=== PATIENT | female | born 1975 | race Caucasian/White ===

== ENCOUNTER 2020-04-24 09:16 | Outpatient (NON) | payer OTHER, SELFPAY ==
[2020-04-25 16:06] LABS: SARS-CoV-2 RNA PCR Negative
== END 2020-04-24 09:17 ==
PROVIDERS: Visit Provider Family Medicine
DX: Z20.828 Contact with and (suspected) exposure to other viral communicable diseases (principal)
CPT/HCPCS: 87635; C9803; U0003

== ENCOUNTER → 2021-05-21 15:48 | Outpatient (CLI) | payer OTHER, SELFPAY ==
--- NOTE | ~2021-05-21 | MM_ITS ---
EXAMINATION: MM scrn georgette implant BI w bailey HISTORY: Screening mammogram TECHNIQUE: Craniocaudal and mediolateral oblique 3-D tomosynthesis images with implant displacement a nd synthetic 2-D images were generated. Craniocaudal and mediolateral oblique views of the breasts wi thout implant displacement were obtained using full field digital mammography. CAD analysis was submi tted and interpreted. COMPARISON: 09/27/2017 BREAST PARENCHYMAL COMPOSITION: The breasts are heterogeneously dense, which may obscure small masses . FINDINGS: There is no evidence of suspicious mass, calcification, or architectural distortion to sugg est malignancy in either breast. There has been no suspicious interval change. IMPRESSION: 1. No mammographic evidence of malignancy. 2. Recommend routine screening mammography in one year. BI-RADS Category 1: Negative Reviewed, dictated and finalized at location A. [facility]
== END ==
PROVIDERS: Visit Provider Obstetrics & Gynecology
DX: Z12.31 Encounter for screening mammogram for malignant neoplasm of breast (principal)
CPT/HCPCS: 77063; 77067

== ENCOUNTER 2023-03-18 11:38 | Day surgery (SDC) | payer OTHER, SELFPAY ==
--- NOTE | 2023-03-17 15:58 | WPDANESEPPF ---
Anes - Initial Pre Proc Eval Procedure: Operation Date: 03/18/23 14:00 Proposed Procedures p Screening Colonoscopy - Nilson Irizarry MD Date/Time: 03/17/23 15:58 Surgeon: Nilson Irizarry MD Pre Op Diagnosis: Neoplasm Screening Patient Data Age: 47 Gender: F Height: 1.69 m Weight: 70.76 kg Allergies Allergy/AdvReac Type Severity Reaction Status Date / Time No Known Allergies Allergy Verified 03/18/23 12:53 Home Medications Medication Instructions Recorded Confirmed Type bupropion HCl 100 mg tablet,12 hr 100 mg PO BID 09/25/20 03/18/23 History sustained-release (Wellbutrin SR) dextroamphetamine-amphetamine 10 10 mg PO DAILY 09/25/20 03/18/23 History mg tablet (Adderall) estradiol 2 mg tablet 2 mg PO DAILY 11/28/21 03/18/23 History eletriptan 20 mg tablet See Rx Instructions .Route 01/20/23 03/18/23 Rx .COMPLEX #30 tabs fluoxetine 20 mg capsule See Rx Instructions .Route 01/20/23 03/18/23 Rx .COMPLEX #90 caps sodium,potassium,mag sulfates 17.5 See Rx Instructions PO .COMPLEX 02/23/23 03/04/23 Rx gram-3.13 gram-1.6 gram oral soln #354 mL (Suprep Bowel Prep Kit) Patient hx anesthesia problems: none Family hx anesthesia problems: none Results Review: All pre-operative results and documents have been reviewed as part of the pre-operative evaluation. [facility] Past Medical History Medical History (Updated 03/18/23 @ 13:16 by Nilson Irizarry MD) Chronic migraine PHUC (generalized anxiety disorder) Surgical History Surgical History H/O abdominoplasty H/O reduction mammoplasty Hx of hysterectomy Family History Family History Grandparent Family history of osteoporosis Family history of migraine headaches Family history of cataracts Cerebrovascular accident Family history of malignant neoplasm of male breast Father Family history of alcoholism Mother Family history of alcoholism Social History Social History Social History: Smoking status: Never smoker Second hand tobacco smoke exposure: No Alcohol intake: never Substance use: never Substance use type: does not use Lack of Transportation: No Lack of Food: Never True Current Housing: I Have Housing Concerned About Future Housing: No Difficulty Paying Gas/Electric Bills: No Difficulty Paying for Meds: No Currently Unemployed: No Education: Bachelor's Degree Difficulty w/ Childcare or Family Care: No Living arrangements: with family Occupation/Education: occupation Gender identity (if verbalized by the patient): Female Sexual Orientation (if Verbalized by the Patient): Straight or Heterosexual Spiritual care concerns: No Anes - Eval Final PreProcedure Day of Procedure 03/17/23 15:58 Patient weight: normal Heart: regular rate and rhythm Lungs: clear to auscultation and normal air movement Airway: Mallampati scale class II Neurological: alert and oriented Last oral intake: >/= 8 hours ASA classification: II Emergent: no Anesthetic plan: proceed Anesthesia type and monitoring: general GIVS and standard monitoring Results Review: All pre-operative results and documents have been reviewed as part of the pre-operative evaluation. Informed Consent: The patient's anesthetic plan and its attendant risks and benefits were discussed with the patient/family/POA. Questions were solicited and answers provided to the satisfaction of the patient/family/POA.
[2023-03-18 12:58] VITALS: BP 119/81; PULSE 82; RESP 18; TEMP 36.3; O2SAT 100
[2023-03-18] MEDS: LACTATED RINGERS 1,000 ML 150 ML IV CONT (13:08)
--- NOTE | 2023-03-18 13:14 | PM.HPGS ---
History of Present Illness History of Present Illness Consent: Risks, benefits, and alternatives have been discussed and questions answered. Patient agrees to proceed with procedure. Chief complaint: Neoplasm Screening Narrative: Vikki Owen is a 47 year old female Presents for screening colonoscopy. patient reports that her current weight appetite and bowel is are normal. Patient denies abdominal pain. Has had no bleeding. Family history noncontributory. Review of Systems Review of Systems: Review of systems noncontributory. [facility] Past Medical History Medical History (Updated 03/18/23 @ 13:16 by Nilson Irizarry MD) Chronic migraine PHUC (generalized anxiety disorder) Surgical History Surgical History H/O abdominoplasty H/O reduction mammoplasty Hx of hysterectomy Family History Family History Grandparent Family history of osteoporosis Family history of migraine headaches Family history of cataracts Cerebrovascular accident Family history of malignant neoplasm of male breast Father Family history of alcoholism Mother Family history of alcoholism Social History Social History Social History: Smoking status: Never smoker Second hand tobacco smoke exposure: No Alcohol intake: never Substance use: never Substance use type: does not use Lack of Transportation: No Lack of Food: Never True Current Housing: I Have Housing Concerned About Future Housing: No Difficulty Paying Gas/Electric Bills: No Difficulty Paying for Meds: No Currently Unemployed: No Education: Bachelor's Degree Difficulty w/ Childcare or Family Care: No Living arrangements: with family Occupation/Education: occupation Gender identity (if verbalized by the patient): Female Sexual Orientation (if Verbalized by the Patient): Straight or Heterosexual Spiritual care concerns: No Meds Home Medications and Allergies Home Medications Medication Instructions Recorded Confirmed Type bupropion HCl 100 mg tablet,12 hr 100 mg PO BID 09/25/20 03/18/23 History sustained-release (Wellbutrin SR) dextroamphetamine-amphetamine 10 10 mg PO DAILY 09/25/20 03/18/23 History mg tablet (Adderall) estradiol 2 mg tablet 2 mg PO DAILY 11/28/21 03/18/23 History eletriptan 20 mg tablet See Rx Instructions .Route 01/20/23 03/18/23 Rx .COMPLEX #30 tabs fluoxetine 20 mg capsule See Rx Instructions .Route 01/20/23 03/18/23 Rx .COMPLEX #90 caps sodium,potassium,mag sulfates 17.5 See Rx Instructions PO .COMPLEX 02/23/23 03/04/23 Rx gram-3.13 gram-1.6 gram oral soln #354 mL (Suprep Bowel Prep Kit) Allergies Allergy/AdvReac Type Severity Reaction Status Date / Time No Known Allergies Allergy Verified 03/18/23 12:53 Vital Signs Vital Signs - 24 hr 03/18/23 12:58 Temperature 97.3 F L Pulse Rate 82 Respiratory Rate 18 Blood Pressure 119/81 Pulse Oximetry 100 Oxygen Delivery Room Air Exam Narrative: Physical exam reveals patient Vitalsigns stable. Eight T exam is unremarkable. Patient is anicteric. Lungs are clear to auscultation and to percussion. Heart is without murmur or extra sounds. Abdomen bowel sounds are present soft nontender with no organomegaly. Digital external rectal exam normal. Assessment and Plan Assessment and plan (1) Encounter for screening colonoscopy: Code(s): Z12.11 - Encounter for screening for malignant neoplasm of colon Status: Acute Assessment and Plan: patient presents for screening colonoscopy. She appears to be at average risk for colon polyps. Further recommendations may be given after endoscopy.
[2023-03-18 13:43] VITALS: BP 108/71; PULSE 84; RESP 16; O2SAT 100
[2023-03-18 13:53] VITALS: BP 113/92; PULSE 76; RESP 16; O2SAT 100
[2023-03-18 14:03] VITALS: BP 106/75; PULSE 77; RESP 16; O2SAT 100
--- NOTE | 2023-03-18 14:23 | WPDANESPN ---
Anes - Prog Note Post-Op Date/Time: 03/18/23 14:23 Cardiovascular status: normal Respiratory status: normal Airway patency: baseline Mental status: baseline Post-Op hydration status: normal Vital Signs: Last Vital Signs Temp 36.3 C L 03/18/23 12:58 Pulse 77 03/18/23 14:03 Resp 16 03/18/23 14:03 BP 106/75 03/18/23 14:03 Pulse Ox 100 03/18/23 14:03 O2 Del Method Room Air 03/18/23 14:03 Pain Score (VAS): 0 I/O: Intake & Output 03/17/23 03/18/23 03/18/23 23:59 07:59 15:59 Intake Total 500 Balance 500 Post-procedural complaints: none Patient Feedback: Patient satisfied with anesthetic care. Other Findings: Patient vital signs back to baseline. Patient denies nausea and vomiting. Patient's pain under control. Patient OK for discharge.
== END 2023-03-18 14:20 | disposition home or self-care (01) ==
PROVIDERS: PCP Family Medicine; Visit Provider Internal Medicine Gastroenterology
PROC: 0DJD8ZZ Inspection of Lower Intestinal Tract, Via Natural or Artificial Opening Endoscopic (ICD-10-PCS; CPT 45378; principal; 2023-03-18 14:00)
DX: Z12.11 Encounter for screening for malignant neoplasm of colon (principal); K57.30 Diverticulosis of large intestine without perforation or abscess without bleeding
CPT/HCPCS: 45378

== ENCOUNTER 2023-06-28 12:50 | Outpatient (CLI) | payer OTHER, SELFPAY ==
--- NOTE | ~2023-06-28 | US_ITS ---
EXAMINATION: US thyroid DATE: 06/28/2023 13:12 INDICATION: Nontoxic single thyroid nodule TECHNIQUE: Multiple ultrasound images of the thyroid were obtained. COMPARISON: None. FINDINGS: The right thyroid lobe measures 4.6 x 1.7 x 1.7 cm. The left thyroid lobe measures 4.4 x 1.1 x 1.3 c m. 1.7 cm wider than tall solid hypoechoic nodule with smooth margins and no echogenic foci at the a t the junction of the left thyroid lobe and isthmus (TI-RADS 4, moderately suspicious , FNA if >=1.5 cm, annual followup is >=1 cm). There are a 3 additional smaller TI RADS 4 nodules with similar imagi ng features in the right thyroid lobe which measure 1.1 cm, 9 mm and 8mm in maximal diameters. There is coarsened echotexture with mildly increased vascular flow on color Doppler throughout both thyroid lobes. IMPRESSION: 1. Multinodular goiter. Recommend ultrasound-guided biopsy of the 1.7 cm TI RADS 4 left thyroid nodul e. Reviewed, dictated and finalized at location A. RT DESK CLERK IMPRESSION: 1. Multinodular goiter. Recommend ultrasound-guided biopsy of the 1.7 cm TI RAD S 4 left thyroid nodule.
== END 2023-06-28 12:51 ==
LOC: MICIMG 12:51
PROVIDERS: PCP Nurse Practitioner; Visit Provider Nurse Practitioner
DX: E04.1 Nontoxic single thyroid nodule (principal); E04.2 Nontoxic multinodular goiter
CPT/HCPCS: 76536

== ENCOUNTER 2023-10-15 15:26 | Outpatient (CLI) | payer OTHER, SELFPAY ==
--- NOTE | ~2023-10-15 | MM_ITS ---
EXAMINATION: MM scrn georgette implant BI w bailey HISTORY: Screening mammogram TECHNIQUE: Craniocaudal and mediolateral oblique 3-D tomosynthesis images with implant displacement a nd synthetic 2-D images were generated. Craniocaudal and mediolateral oblique views of the breasts wi thout implant displacement were obtained using full field digital mammography. CAD analysis was submi tted and interpreted. COMPARISON: Comparison to multiple prior studies sequentially, with oldest reviewed study dated 09/27. BREAST PARENCHYMAL COMPOSITION: The breasts are almost entirely fatty. FINDINGS: There is no evidence of suspicious mass, calcification, or architectural distortion to sugg est malignancy in either breast. There has been no suspicious interval change. IMPRESSION: 1. No mammographic evidence of malignancy. 2. Recommend routine screening mammography in one year. BI-RADS Category 1: Negative Reviewed, dictated and finalized at location B.
== END 2023-10-15 15:27 ==
LOC: MICIMG 15:27
PROVIDERS: PCP Nurse Practitioner; Visit Provider Family Medicine
DX: Z12.31 Encounter for screening mammogram for malignant neoplasm of breast (principal)
CPT/HCPCS: 77063; 77067

== ENCOUNTER 2023-11-17 12:26 | Outpatient (CLI) | payer OTHER, SELFPAY ==
--- NOTE | ~2023-11-17 | US_ITS ---
EXAMINATION: 1. US FNA w image guidance 2. US FNA additional DATE: 11/17/2023 14:45 INDICATION: Thyroid nodules. TECHNIQUE: The procedure and its benefits and risks were discussed with the patient. Risks specifically discusse d included bleeding. The patient verbalized understanding of the risks and agreed to proceed. The nec k was prepped and draped in the usual sterile manner. 1% lidocaine was used for local anesthesia. 7 passes were made with a 25G needle into the lesion in right thyroid lobe under ultrasound guidance. 6 passes were made with a 25-gauge needle into the lesion in left thyroid lobe on ultrasound guidance . There were no immediate complications. FINDINGS: Grayscale ultrasound images demonstrate needles advanced into a 12 mm nodule in right thyroid lobe. G rayscale ultrasound images demonstrate needles advanced into a 17 mm nodule in left thyroid lobe for biopsy. IMPRESSION: 1. Ultrasound-guided fine needle aspiration of a 12 mm right thyroid nodule. 2. Ultrasound-guided fine-needle aspiration of a 17 mm left thyroid nodule. Reviewed, dictated and finalized at location A. IMPRESSION: 1. Ultrasound-guided fine needle aspiration of a 12 mm right thyroid nodule. 2. Ultrasound-guided fine-needle aspiration of a 17 mm left thyroid nodule.
== END 2023-11-17 12:27 | disposition home or self-care (01) ==
PROVIDERS: PCP Family Medicine; Visit Provider Internal Medicine
DX: E04.2 Nontoxic multinodular goiter (principal); E05.90 Thyrotoxicosis, unspecified without thyrotoxic crisis or storm
CPT/HCPCS: 10005; 10006; 88172; 88173; 88305

== ENCOUNTER 2024-06-01 13:01 | Outpatient (CLI) | payer OTHER, SELFPAY ==
--- NOTE | ~2024-06-01 | US_ITS ---
EXAMINATION: US thyroid DATE: 06/01/2024 13:43 INDICATION: Multinodular goiter. TECHNIQUE: Multiple ultrasound images of the thyroid were obtained. COMPARISON: Ultrasound 06/28/2023, 11/17/23 FINDINGS: The right thyroid lobe measures 5.0 x 1.0 x 2.0 cm. The left thyroid lobe measures 4.4 x 1.2 x 2.0 c m. In the right thyroid lobe, there is an 8 mm solid, hypoechoic, wider than tall nodule with smooth margin without echogenic foci (TI-RADS TR4). In the right thyroid lobe, there is an 11 mm solid, hyp oechoic, wider than tall nodule with ill-defined margin without echogenic foci (TR4), stable from 11/16 when biopsy was benign. In the left thyroid lobe, there is a 7 mm solid, isoechoic, wider than ta ll nodule with ill-defined margin without echogenic foci (TR3). In the thyroid isthmus, there is a 15 mm solid, hypoechoic, wider than tall nodule with ill-defined margin without echogenic foci (TR4), s table from 11/17/23 when biopsy was benign. IMPRESSION: 1. Multinodular goiter, likely not clinically significant. No follow-up is needed. Reviewed, dictated and finalized at location A. [employer] EMPLOYEE RELATIONS IMPRESSION: 1. Multinodular goiter, likely not clinically significant. No follow-up is need ed.
--- OUTSIDE RECORDS SUMMARY | 2024-06-08 03:31 | XMS_ITS | Referral Summary ---
Author Organization [facility] [employer] Address [address] [place] [address] Care Team Providers Care Keyboard Specialist Name Role Phone Isabel Mills MD Primary Care Provider + Source Comments [facility] [employer] [facility],non-owned Affiliates and Associated Physician Practices is amultiple site organization consisting of ambulatory clinics and hospital sitesin [place], [place], [place] and [place]. This disclosure is being madepursuant to the Care Everywhere program and may not contain all information available regarding this patient. Last updated 18.[facility] Allergies No known active allergies Medications * Be aware that medications may not be up to date on this document. Alwaysverify current medications with the patient. Medication Sig Dispensed Refills Start Date End Date Status buPROPion HCl (WELLBUTRIN PO) Active Amphetamine-Dextroa mphetamine (ADDERALL PO) Active estrogens, conjugated synthetic B, (ENJUVIA) 0.3 MG tablet Take 0.3 mg by mouth once daily Active triamcinolone acetonide (KENALOG) 0.1 % creamIndications:De rmatitis Apply to affected area 2 times daily Reasons: Skin Inflammation 30 g 01/01/2019 Active Social History Tobacco Use Types Packs/Day Years Used Date Smoking Tobacco: Never Smokeless Tobacco: Never Sex and Gender Information Value Date Recorded Sex Assigned at Not on file Gender Identity Not on file Sexual Orientation Straight 04/20/2024 2: 12 PM [employer] Last Filed Vital Signs Vital Sign Reading Time Taken Comments Blood Pressure 116/74 01/01/2019 1:59 PM CDT Pulse 96 01/01/2019 1:59 PM CDT Temperature 36.8 ??C (98.3 ??F) 01/01/2019 1:59 PM CD T Respiratory Rate 17 01/01/2019 1:59 PM CDT Oxygen Saturation 98% 01/01/2019 1:59 PM CDT Inhaled Oxygen Concentration - - Weight 74.8 kg (165 lb) 01/01/2019 1:59 PM CDT Height 165.1 cm (5' 5 ) 01/01/2019 1:59 PM CDT Body Mass Index 27.46 01/01/2019 1:59 PM CDT Plan of Treatment Not on file Care Teams Keyboard Specialist Relationship Specialty Start Date End Date Isabel Mills MD [address] [place] [address] PCP - General Family Medicine 01/01/19
--- OUTSIDE RECORDS SUMMARY | 2024-06-08 03:31 | XMS_ITS ---
Author Organization [facility] Address [address] [place] [address] Care Team Providers Care Thoracic Surgeon Name Role Phone Dr. Isabel Saenz Primary Care Provider Un available Siddharth Ness Unavailable [phone] Andrew Correia Unavailable Unavailable Sampson Dickerson Unavailable [phone] REASON FOR VISIT SCIT - Traditional Schedule Allergy Immunotherapy (Week ) Medications Medication SIG (Take, Route, Frequency, Duration) Notes Start Date End Date Status Pneumovax 23 25 MCG/0.5ML as directed Injection 1 for 1 days 11/08/2023 Active DONA 12 HOUR ALLERGY 60 MG 1 TAB(S) ORALLY 2 TIMES A DAY *Please review for potential replacement for e-prescription and drug interaction check* Not-Taking Estradiol 2 MG 1 tab(s) orally once a day Active PROzac 20 MG 1 cap(s) orally once a day Active Adderall *Please review and pick correct strength-formula tion from [employer] options. If intended option is not shown, discontinue and re-order from Quick Search* Active ELETRIPTAN 20 MG DIRECTED ORALLY *Please revi ew for potential replacement for e-prescription and drug interaction check* Active buPROPion HCl ER (XL) 300 MG 1 tab(s) orally every 24 hours Active Topiramate 25 MG 1 tab(s) orally 2 times a day Active Cholecalciferol *Please review and pick correct strength-formula tion from [employer] options. If intended option is not shown, discontinue and re-order from Quick Search* Active Fluticasone Propionate 50 MCG/ACT 2 spray(s) in each nostril twice a day for 30 days Active SIT (Traditional) variable - see record per schedule subcutaneous per schedule for 999 11/08/2023 Active NASAL WASHES N/A as directed intranasally as needed for 30 days Active FLUTICASONE NASAL 50 mcg/inh 2 spray(s) in each nostril twice a day for 30 days Active CETIRIZINE 10 mg 1 tab(s) orally once a day for 30 days Active Cetirizine HCl 10 MG 1 tab(s) orally onc e a day for 30 days Active ESTRADIOL 2 mg 1 tab(s) orally once a day Active PROZAC 20 mg 1 cap(s) orally once a day Active ADDERALL Active BUPROPION 300 mg/24 hours 1 tab(s) orally every 24 hours Active TOPIRAMATE 25 mg 1 tab(s) orally 2 times a day Active FLUTICASONE NASAL 50 mcg/inh 2 spray(s) in each nostril twice a day for 30 days Active CETIRIZINE 10 mg 1 tab(s) orally once a day for 30 days Active EpiPen 2-Rachel 0.3 mg as directed intramuscularly once for 30 days Active CHOLECALCIFEROL Acti ve EPIPEN 2-RACHEL 0.3 mg as directed intramuscularly once for 30 days Active Encounters Encounter Location Date Provider Diagnosis [facility] [address] [place] [address] 06/01/2024 Sampson Dickerson Allergic rhinitis du e to pollen J30.1 ; Other allergic rhinitis J30.89 ; Allergic rhinitis due to animal (cat) (dog) hair and dander J30.81 and Other chronic allergic conjunctivitis H10.45 Assessments Encounter Date Diagnosis (ICD Code) Assessment Notes Treatment Notes Treatment Clinical Notes Section Notes 06/01/2024 Allergic rhinitis due to pollen (ICD-10 - J30.1) 06/01/2024 Other allergic rhinitis (ICD-10 - J30.89) 06/01/2024 Allergic rhinitis due to animal (cat) (dog) hair and dander (ICD-10 - J30.81) 06/01/2024 Other chronic allergic conjunctivitis (ICD-10 - H10.45) Plan Of Treatment Next Appt Details Follow Up: As scheduled, [place] son: Provider Name:Sampson Dickerson , 06/26/2024 04:00:00 PM, [address] [facility], [address], [place], [address], Provider Name:Sampson Dickerson , 07/24/2024 04:00:00 PM, [address] [facility], [address], [place], [address], Progress Notes * MARGOTVikash MALLOYleviDOB: 5 (48 yo F)Acc No.[id number]:06/01/2024 SCIT-Aeroallergen Patient:?MARGOTVikashVikki Provider:?Sampson Dickerson MD :1975???Age:48 Y???Sex:Female D ate:06/01/2024 Address:[address] [place], [place] [address] Pcp:Dr. Isabel Saenz Subjective: * Chief Complaints: * ???SCIT - Traditional [place] Allergy Immunotherapy (Week ) * HPI: ???*Introduction:? The patient is here for scheduled immunotherapy. Please see the attached specialty form regarding the specifics of the administration of these vaccines. As per our protocol, they must undergo a screening health questionnaire (medication changes, reaction(s) to last immunotherapy dose(s), current health status, ACT (if appropriate), self-injectable epinephrine on patient(?) and peak flow (if appropriate)). Also, the patient must wait in our office for 30 minutes after receiving the vaccine(s). Furthermore, every patient must have an epinephrine pen (self-injectable) with them at the time of administration--and carry if for the following 1.5 hours after they leave our office. The patient must also have taken their antihistamine the day of the injection, preferably 2 hours prior. The consent form for SCIT (subcutaneous immunotherapy) is on file. * Medical History:? * Surgical History:? * Hospitalization/Major Diagno stic Procedure:? * Medications:?TakingEpiPen 2- Rachel 0.3 mg kit as directed intramuscularly once EpiPen 2-Rachel 0.3 mg kit as directed intramuscularly once CETIRIZINE 10 mg tablet 1 tab(s) orally once a day FLUTICASONE NASAL 50 mcg/inh spray 2 spray(s) in each nostril twice a day EPIPEN 2-RACHEL 0.3 mg kit as directed intramuscularly once CHOLECALCIFEROL TOPIRAMATE 25 mg tablet 1 tab(s) orally 2 times a day BUPROPION 300 mg/24 hours tablet, extended release 1 tab(s) orally every 24 hours ADDERALL PROZAC 20 mg capsule 1 cap(s) orally once a day ESTRADIOL 2 mg tablet 1 tab(s) orally once a day CETIRIZINE 10 mg tablet 1 tab(s) orally once a day FLUTICASONE NASAL 50 mcg/inh spray 2 spray(s) in each nostril twice a day NASAL WASHES N/A 1 quart of sterilized tap water or distilled water, 1 tsp NaCl, 1 pinch of baking soda as directed intranasally as needed SIT (Traditional) variable - see record variable - see record per schedule subcutaneous per schedule Cetirizine HCl 10 MG Tablet 1 tab(s) orally once a day Fluticasone Propionate 50 MCG/ACT Suspension 2 spray(s) in each nostril twice a day Cholecalciferol , Notes to Pharmacist: *Please review and pick correct strength-formulation from [employer] options. If intended option is not shown, discontinue and re-order from Quick Search*Topiramate 25 MG Tablet 1 tab(s) orally 2 times a day buPROPion HCl ER (XL) 300 MG Tablet Extended Release 24 Hour 1 tab(s) orally every 24 hours ELETRIPTAN 20 MG TABLET DIRECTED ORALLY , Notes to Pharmacist: *Please review for potential replacement for e-prescription and drug interaction check*Adderall , Notes to Pharmacist: *Please review and pick correct strength-formulation from [employer] options. If intended option is not shown, discontinue and re-order from Quick Search*PROzac 20 MG Capsule 1 cap(s) orally once a day Estradiol 2 MG Tablet 1 tab(s) orally once a day Pneumovax 23 25 MCG/0.5ML Injectable as directed Injection 1 Taking EpiPen 2-Rachel 0.3 mg kit as directed intramuscularly once Taking EpiPen 2-Rachel 0.3 mg kit as directed intramuscularly once Taking CETIRIZINE 10 mg tablet 1 tab(s) orally once a day Taking FLUTICASONE NASAL 50 mcg/inh spray 2 spray(s) in each nostril twice a day Taking EPIPEN 2-RACHEL 0.3 mg kit as directed intramuscularly once Taking CHOLECALCIFEROL Taking TOPIRAMATE 25 mg tablet 1 tab(s) orally 2 times a day Taking BUPROPION 300 mg/24 hours tablet, extended release 1 tab(s) orally every 24 hours Taking ADDERALL Taking PROZAC 20 mg capsule 1 cap(s) orally once a day Taking ESTRADIOL 2 mg tablet 1 tab(s) orally once a day Taking CETIRIZINE 10 mg tablet 1 tab(s) orally once a day Taking FLUTICASONE NASAL 50 mcg/inh spray 2 spray(s) in each nostril twice a day Taking NASAL WASHES N/A 1 quart of sterilized tap water or distilled water, 1 tsp NaCl, 1 pinch of baking soda as directed intranasally as needed Taking SIT (Traditional) variable - see record variable - see record per schedule subcutaneous per schedule Taking Cetirizine HCl 10 MG Tablet 1 tab(s) orally once a day Taking Fluticasone Propionate 50 MCG/ACT Suspension 2 spray(s) in each nostril twice a day Taking Cholecalciferol , Notes to Pharmacist: *Please review and pick correct strength-formulation from anfix options. If intended option is not shown, discontinue and re-order from Quick Search*Taking Topiramate 25 MG Tablet 1 tab(s) orally 2 times a day Taking buPROPion HCl ER (XL) 300 MG Tablet Extended Release 24 Hour 1 tab(s) orally every 24 hours Taking ELETRIPTAN 20 MG TABLET DIRECTED ORALLY , Notes to Pharmacist: *Please review for potential replacement for e-prescription and drug interaction check*Taking Adderall , Notes to Pharmacist: *Please review and pick correct strength- formulation from [employer] options. If intended option is not shown, discontinue and re-order from Quick Search*Taking PROzac 20 MG Capsule 1 cap(s) orally once a day Taking Estradiol 2 MG Tablet 1 tab(s) orally once a day Taking Pneumovax 23 25 MCG/0.5ML Injectable as directed Injection 1 Not-Taking/PRNALLEGRA 12 HOUR ALLERGY 60 MG TABLET 1 TAB(S) ORALLY 2 TIMES A DAY , Notes to Pharmacist: *Please review for potential replacement for e-prescription and drug interaction check*Not-Taking/PRN DONA 12 HOUR ALLERGY 60 MG TABLET 1 TAB(S) ORALLY 2 TIMES A DAY , Notes to Pharmacist: *Please review for potential replacement for e-prescription and drug interaction check* Objective: * Vitals:? Assessment: * Assessment: 1.?Allergic rhinitis due to pollen - J30.1 (Primary)???2.?Other allergic rhinitis - J30.89???3.?Allergic rhinitis due to animal (cat) (dog) hair and dander - J30.81???4.?Other chronic allergic conjunctivitis - H10.45??? Plan: * Treatment: * Procedure Codes:?85448 IMMUN OTHERAPY INJECTIONS * Preventive Medicine:? ??Counseling:?Exercise?Avoid heavy lifting on days of allergy immunotherapy.?Medication instruction:?Injectable epinephrine education and instruction w/ discussion of signs and symptoms of anaphylaxis and reasons to seek urgent or emergent care, Watch for side effects of prescribed medications.?Education:?Able to return demonstration of self-injectable epinephrine.? * Follow Up:?As scheduled * Billing Information: * Visit Code:? * Procedure Codes:? 22077 IMMUNOTHERAPY INJECTIONS. * EMERGING MEDIA Sign off status: Completed true * Provider:?Sampson Dickerson MD Date:?06/01 Generated for Christal perla/Zachary/eTmary bethsmitting on:?06/08/2024 03:31 AM VP EMERGING MEDIA History and Physical Notes * HPI (History of Present Illness) Category Sub-Category Detail Notes Category Not es *Introduction The patient is here for scheduled immunotherapy. Please see the attached specialty form regarding the specifics of the administration of these vaccines. As per our protocol, they must undergo a screening health questionnaire (medication changes, reaction(s) to last immunotherapy dose(s), current health status, ACT (if appropriate), self-injectable epinephrine on patient(?) and peak flow (if appropriate)). Also, the patient must wait in our office for 30 minutes after receiving the vaccine(s). Furthermore, every patient must have an epinephrine pen (self-injectable) with them at the time of administration--and carry if for the following 1.5 hours after they leave our office. The patient must also have taken their antihistamine the day of the injection, preferably 2 hours prior. The consent form for SCIT (subcutaneous immunotherapy) is on file.
--- OUTSIDE RECORDS SUMMARY | 2024-06-08 03:31 | XMS_ITS | Clinical Summary ---
Author Organization [facility] Address [address] [place] [address] Care Team Providers Care Casting Machine Control Board Operator Name Role Phone Isabel Mills MD Primary Care Provider + Source Comments [facility],non-owned Affiliates and Associated Physician Practices is amultiple site organization consisting of ambulatory clinics and hospital sitesin [place], [place], [place] and [place]. This disclosure is being madepursuant to the Care Everywhere program and may not contain all information available regarding this patient. 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 Filed Vital Signs Vital Sign Reading Time Taken Comments Blood Pressure 116/74 01/01/2019 1:59 PM CDT Pulse 96 01/01/2019 1:59 PM CDT Temperature 36.8 ??C (98.3 ??F) 01/01/2019 1:59 PM C DT Respiratory Rate 17 01/01/2019 1:59 PM CDT Oxygen Saturation 98% 01/01/2019 1:59 PM CDT Inhaled Oxygen Concentration - - Weight 74.8 kg (165 lb) 01/01/2019 1:59 PM CDT Height 165.1 cm (5' 5 ) 01/01/2019 1:59 PM CDT Body Mass Index 27.46 01/01/2019 1:59 PM CDT Plan of Treatment Health Maintenance Due Date Last Done Comments COLOGUARD (AGES 45-75) - COL ON CA SCREENING 1974 COLON MONITORING 1974 COLONOSCOPY - COLON CA SCREENING 1974 CT COLONOGRAPHY - COLON CA SCREENING 1974 Colorectal Cancer Screening 1974 FIT - COLON CA SCREENING 1974 FLEX SIG - COLON CA SCREENING 1974 LIPID TESTING 1974 MAMMOGRAM 1974 PAP SMEAR 1974 HIV SCREENING 1989 HEPATITIS C SCREENING 10/21/1992 DTAP/TDAP/TD VACCINES (1 - Tdap) 1993 HEPATITIS B VACCINE (1 of 3 - 19+ 3-dose series) 1993 SCREENING FOR DIABETES 01/01/2019 COVID-19 VACCINE ( - 2023-2 5 season) 2024 INFLUENZA VACCINE (#1) 2024 DEPRESSION SCREENING 05/17/2024 ZOSTER VACCINE (1 of 2) 2024 HIB VACCINE Aged Out No longer eligi ble based on patient's age to complete this topic HPV VACCINE Aged Out No longer eligi ble based on patient's age to complete this topic MENINGOCOCCAL (Group B) VACCINE Aged Out No longer eligible based on patient's age to complete this topic MENINGOCOCCAL VACCINE Aged Out No lorna camelia eligible based on patient's age to complete this topic PNEUMOCOCCAL VACCINE Aged Out No long er eligible based on patient's age to complete this topic Care Teams Casting Machine Control Board Operator Relationship Specialty Start Date End Date Isabel Mills MD [address] [place] [address] PCP - General Family Medicine 01/01/19
--- OUTSIDE RECORDS SUMMARY | 2024-06-08 03:31 | XMS_ITS | Patient Health Summary ---
Author Organization [facility] [employer] Address [address] [place] [address] Care Team Providers Care Anesthesiology Resident Name Role Phone Isabel Mills MD Primary Care Provider + Note from [facility],non-owned Affiliates and Associated Physician Practices is amultiple site organization consisting of ambulatory clinics and hospital sitesin [place], [place], [place] and [place]. This disclosure is being madepursuant to the Care Everywhere program and may not contain all information available regarding this patient. Last updated 18.[facility] Allergies No known active allergies Medications * Be aware that medications may not be up to date on this document. Alwaysverify current medications with the patient. * buPROPion HCl (WELLBUTRIN PO) * Amphetamine-Dextroamphetamine (ADDERALL PO) * estrogens, conjugated synthetic B, (ENJUVIA) 0.3 MG tablet Take 0.3 mg by mouth once daily * triamcinolone acetonide (KENALOG) 0.1 % cream(Started 01/01/2019) Apply to affected area 2 times daily Reasons: Skin Inflammation Social History Tobacco Use Types Packs/Day Years Used Date Smoking Tobacco: Never Smokeless Tobacco: Never Sex and Gender Information Value Date Recorded Sex Assigned at Not on file Gender Identity Not on file Sexual Orientation Straight 04/20/2024 2: 12 PM POST ACUTE CARE NURSE PRACTITIONER Last Filed Vital Signs Vital Sign Reading [...] Mass Index 27.46 01/01/2019 1:59 PM CDT Care Teams Anesthesiology Resident Relationship Specialty Start Date End Date Isabel Mills MD [address] [place] [address] PCP - General Family Medicine 01/01/19
--- OUTSIDE RECORDS SUMMARY | 2024-06-08 03:31 | XMS_ITS ---
Author Organization [facility] Address [address] [place] [address] Care Team Providers Care Revenue Integrity Analyst Name Role Phone Dr. Isabel Saenz Primary Care Provider Un available Siddharth Ness Unavailable [phone] Andrew Correia Unavailable Unavailable Sampson Dickerson Unavailable [phone] REASON FOR VISIT SCIT - Traditional Schedule Allergy Immunotherapy (Week ) Encounters Encounter Location Date Provider Diagnosis [facility] [employer] [facility] [address] [place] [address] 05/29/2024 Sampson Dickerson Allergic rhinitis du e to pollen J30.1 ; Other allergic rhinitis J30.89 ; Allergic rhinitis due to animal (cat) (dog) hair and dander J30.81 and Other chronic allergic conjunctivitis H10.45 Assessments Encounter Date Diagnosis (ICD Code) Assessment Notes Treatment Notes Treatment Clinical Notes Section Notes 05/29/2024 Allergic rhinitis due to pollen (ICD-10 - J30.1) 05/29/2024 Other allergic rhinitis (ICD-10 - J30.89) 05/29/2024 Allergic rhinitis due to animal (cat) (dog) hair and dander (ICD-10 - J30.81) 05/29/2024 Other chronic allergic conjunctivitis (ICD-10 - H10.45) Plan Of Treatment Next Appt Details Follow Up: As scheduled, [place] son: Provider Name:Sampson Dickerson , 06/26/2024 04:00:00 PM, [address], [address], [address], Provider Name:Sampson Noe Dickerson , 07/24/2024 04:00:00 PM, [address] [facility], [address], [address], Progress Notes * Vikki OWENDOB: 5 (48 yo F)Acc No.[id number]:05/29/2024 SCIT-Aeroallergen Patient:?Vikki OWEN Provider:?Sampson Dickerson MD :1975???Age:48 Y???Sex:Female D ate:05/29/2024 Address:[address] [place] [address] [facility] Pcp:Dr. Isabel Saenz Subjective: * Chief Complaints: * ???1. SCIT - Traditional [facility] Allergy Immunotherapy (Week ). * HPI: ???*Introduction:? The patient is here [...] immunotherapy) is on file. * Medical History:? Objective: * Vitals:? Assessment: * Assessment: 1.?Allergic rhinitis due to pollen - J30.1 (Primary)???2.?Other allergic rhinitis - J30.89???3.?Allergic rhinitis due to animal (cat) (dog) hair and dander - J30.81???4.?Other chronic allergic conjunctivitis - H10.45??? Plan: * Treatment: * Preventive Medicine:? ??Counseling:?Exercise?Avoid heavy lifting on days of allergy immunotherapy.?Medication instruction:?Injectable epinephrine education and instruction w/ discussion of signs and symptoms of anaphylaxis and reasons to seek urgent or emergent care, Watch for side effects of prescribed medications.?Education:?Able to return demonstration of self-injectable epinephrine.? * Follow Up:?As scheduled * Billing Information: * Visit Code:? * Procedure Codes:? 32296 IMMUNOTHERAPY INJECTIONS. * Electronic signature of Fercho Dickerson MD, FAAAAI on 06/08/2024 at 03:31 AM METAL RECLAMATION KETTLE TENDER Sign off status: Pending * Provider:?Sampson Dickerson MD Date:?05/29 Generated for Daisyi minda/Zachary/eTransmitting on:?06/08/2024 03:31 AM METAL RECLAMATION KETTLE TENDER History and Physical Notes * HPI (History [...]
--- OUTSIDE RECORDS SUMMARY | 2024-06-08 03:32 | XMS_ITS ---
Author Organization [facility] Address [address] [place] [address] Care Team Providers Care Inspector And Mender Name Role Phone Dr. Isabel Saenz Primary Care Provider Un available Siddharth Ness Unavailable [phone] Andrew Correia Unavailable Unavailable Sampson Dickerson Unavailable [phone] REASON FOR VISIT SCIT - Traditional Schedule Allergy Immunotherapy (Week ) Medications Medication SIG (Take, Route, Frequency, Duration) Notes Start Date End Date Status BUPROPION 300 mg/24 hours 1 tab(s) orally every 24 hours Active ADDERALL Active PROZAC 20 mg 1 cap(s) orally once a day Active ESTRADIOL 2 mg 1 tab(s) orally once a day Active CETIRIZINE 10 mg 1 tab(s) orally once a day for 30 days Active TOPIRAMATE 25 mg 1 tab(s) orally 2 times a day Active CETIRIZINE 10 mg 1 tab(s) orally once a day for 30 days Active FLUTICASONE NASAL 50 mcg/inh 2 spray(s) in each nostril twice a day for 30 days Active EPIPEN 2-RAMIN 0.3 mg as directed intramuscularly once for 30 days Active CHOLECALCIFEROL Acti ve PROzac 20 MG 1 cap(s) orally once a day Active Estradiol 2 MG 1 tab(s) orally once a day Active DONA 12 HOUR ALLERGY 60 MG 1 TAB(S) ORALLY 2 TIMES A DAY *Please review for potential replacement for e-prescription and drug interaction check* Not-Taking Pneumovax 23 25 MCG/0.5ML as directed Injection 1 for 1 days 11/08/2023 Active EpiPen 2-Ramin 0.3 mg as directed intramuscularly once for 30 days Active Topiramate 25 MG 1 tab(s) orally 2 times a day Active buPROPion HCl ER (XL) 300 MG 1 tab(s) orally every 24 hours Active ELETRIPTAN 20 MG DIRECTED ORALLY *Please revi ew for potential replacement for e-prescription and drug interaction check* Active Adderall *Please review and pick correct strength-formula tion from [employer] options. If intended option is not shown, discontinue and re-order from Quick Search* Active Cholecalciferol *Please review and pick correct strength-formula tion from [employer] options. If intended option is not shown, discontinue and re-order from Quick Search* Active FLUTICASONE NASAL 50 mcg/inh 2 spray(s) in each nostril twice a day for 30 days Active NASAL WASHES N/A as directed intranasally as needed for 30 days Active SIT (Traditional) variable - see record per schedule subcutaneous per schedule for 999 11/08/2023 Active Cetirizine HCl 10 MG 1 tab(s) orally onc e a day for 30 days Active Fluticasone Propionate 50 MCG/ACT 2 spray(s) in each nostril twice a day for 30 days Active Encounters Encounter Location Date Provider Diagnosis [facility] [address] [place] [address] 05/01/2024 Sampson Dickerson Allergic rhinitis du e to pollen J30.1 ; Other allergic rhinitis J30.89 ; Allergic rhinitis due to animal (cat) (dog) hair and dander J30.81 and Other chronic allergic conjunctivitis H10.45 Assessments Encounter Date Diagnosis (ICD Code) Assessment Notes Treatment Notes Treatment Clinical Notes Section Notes 05/01/2024 Allergic rhinitis due to pollen (ICD-10 - J30.1) 05/01/2024 Other allergic rhinitis (ICD-10 - J30.89) 05/01/2024 Allergic rhinitis due to animal (cat) (dog) hair and dander (ICD-10 - J30.81) 05/01/2024 Other chronic allergic conjunctivitis (ICD-10 - H10.45) Plan Of Treatment Next Appt Details Follow Up: As scheduled, [place] son: Provider Name:Sampson Dickerson , 06/26/2024 04:00:00 PM, [address] [facility], [address], [place], [address], Provider Name:Sampson Dickerson , 07/24/2024 04:00:00 PM, [address] [facility], [address], [place], [address], Progress Notes * MARGOTVikki MALLOYDOB: 5 (48 yo F)Acc No.[id number]:05/01/2024 SCIT-Aeroallergen Patient:?MARGOTVikashVikki Provider:?Sampson Dickerson MD :1975???Age:48 Y???Sex:Female D ate:05/01/2024 Address:[address] [place], [place] [id number] Pcp:Dr. Isabel Saenz Subjective: * Chief Complaints: [...] Hospitalization/Major Diagno stic Procedure:? * Medications:?TakingEpiPen 2- Ramin 0.3 mg kit as directed intramuscularly once EpiPen 2-Ramin 0.3 mg kit as directed intramuscularly once CETIRIZINE 10 mg tablet 1 tab(s) orally once a day FLUTICASONE NASAL 50 mcg/inh spray 2 spray(s) in each nostril twice a day EPIPEN 2-RAMIN 0.3 mg kit as directed intramuscularly once [...] *Please review and pick correct strength-formulation from [employer] options. If intended option is not shown, [...] *Please review and pick correct strength-formulation from [employer] options. If intended option is not shown, discontinue and re-order from Quick Search*PROzac 20 MG Capsule 1 cap(s) orally once a day Estradiol 2 MG Tablet 1 tab(s) orally once a day Pneumovax 23 25 MCG/0.5ML Injectable as directed Injection 1 Taking EpiPen 2-Ramin 0.3 mg kit as directed intramuscularly once Taking EpiPen 2-Ramin 0.3 mg kit as directed intramuscularly once Taking CETIRIZINE 10 mg tablet 1 tab(s) orally once a day Taking FLUTICASONE NASAL 50 mcg/inh spray 2 spray(s) in each nostril twice a day Taking EPIPEN 2-RAMIN 0.3 mg kit as directed intramuscularly once [...] *Please review and pick correct strength-formulation from [employer] options. If intended option is not shown, [...] review and pick correct strength- formulation from [employer] options. If intended option is not shown, [...] - H10.45??? Plan: * Treatment: * Procedure Codes:?71728 IMMUN OTHERAPY INJECTIONS * Preventive Medicine:? ??Counseling:?Exercise?Avoid heavy lifting on days of allergy immunotherapy.?Medication instruction:?Injectable epinephrine education and instruction w/ discussion of signs and symptoms of anaphylaxis and reasons to seek urgent or emergent care, Watch for side effects of prescribed medications.?Education:?Able to return demonstration of self-injectable epinephrine.? * Follow Up:?As scheduled * Billing Information: * Visit Code:? * Procedure Codes:? 82708 IMMUNOTHERAPY INJECTIONS. * PUMPER Sign off status: Completed true * Provider:?Sampson Dickerson MD Date:?05/01 Generated for Christal perla/Zachary/eTransmitting on:?06/08/2024 03:31 AM NEON PUMPER History and Physical Notes * HPI (History [...]
--- OUTSIDE RECORDS SUMMARY | 2024-06-08 03:32 | XMS_ITS | Encounter Summary ---
Author Organization [facility] Address [address] [place] [address] Phone Care Team Providers Care Ice Guard Inspector Name Role Phone Isabel Mills MD Primary Care Provider Encounter Details Date Type Department Care Team (Late st Contact Info) Description 05/30/2024 Orders Only [facility] [address] [place] [address] Medical Office Building [address], [address] [place] [address] Ronda Brown, COLORING MACHINE OPERATOR Social History Tobacco Use Types Packs/Day Years Used Date Smoking Tobacco: Never Passive Smoke Exposure: Never Smokeless Tobacco: Never AUDIT-C Answer Date Recorded Q1: How often do you have a drink containing alcohol? Never 12/16/2023 Q2: How many drinks containi ng alcohol do you have on a typical day when you are drinking? Patient does not drink Q3: How often do you have si x or more drinks on one occasion? Never 12/16/2023 Comments Unknown Sex and Gender Information Value Date Recorded Sex Assigned at Not on file Legal Sex Female 4:08 AM POLYMER ENGINEER Gender Identity Not on file Sexual Orientation Not on file documented as of this encounter Ordered Prescriptions Prescription Sig Dispense Quantity Refills Last Filled Start Date End Date dextroamphetamine- amphetamine (ADDERALL) 20 mg tablet Take 1 tablet (20 mg total) by mouth 3 (three) times a day 90 tablet 05/31/2024 06/30/2024 dextroamphetamine- amphetamine (ADDERALL) 20 mg tablet Take 1 tablet (20 mg total) by mouth 3 (three) times a day 90 tablet 05/31/2024 05/31/2024 documented in this encounter Progress Notes * Ronda Brown CMA - 05/30/2024 4:06 PM CST As per ERIC Heller, Please have Dr. Frank send in Adderall 20 mg- Take 1 tablet by mouth TID, #[id number] geovanny.,PEND&SEND to Dr. Frank. MER ENGINEER documented in this encounter Miscellaneous Notes * Addendum Note - Lilly Frank MD - 05/30/2024 4:06 PM CSTAddended by: LILLY FRANK on: 05/31/2024 06:35 AM Modules accepted: Orders MER ENGINEER documented in this encounter Plan of Treatment Not on file documented as of this encounter Visit Diagnoses Not on filedocumented in this encounter Discontinued Medications Medication Sig Discontinue Reason Start Date End Da te dextroamphetamine-amphet amine (ADDERALL) 20 mg tablet Take 1 tablet (20 mg total) by mouth 3 (three) times a day Reorder 04/22/2024 05/30/2024 dextroamphetamine-amphet amine (ADDERALL) 20 mg tablet Take 1 tablet (20 mg total) by mouth 3 (three) times a day Reorder 05/31/2024 05/31/2024 documented as of this encounter Care Teams Ice Guard Inspector Relationship Specialty Start Date End Date Isabel Mills MD [address] [place] [address] PCP - General Family Medicine 07/15/21 documented as of this encounter
--- OUTSIDE RECORDS SUMMARY | 2024-06-08 03:32 | XMS_ITS | Clinical Summary ---
Author Organization [facility] Address [id number] [place] [address] Care Team Providers Care Services Tech Name Role Phone Isabel Mills MD Primary Care Provider Allergies No known active allergies Medications eletriptan (RELPAX) 20 mg tablet TAKE 1 TABLET BY MOUTH EVERY DAY NEEDED FOR MIGRAINE HEADACHE 2 Active estradioL (ESTRACE) 2 mg tablet 1 Active ergocalciferol, vitamin D2, 50 mcg (2,000 unit) tablet Take by mouth Act rochelle topiramate (TOPAMAX) 25 mg tablet Take 2 tablets (50 mg total) by mouth 2 (two) times a day 360 tablet 1 5 11/27/19 25 Active buPROPion XL (WELLBUTRIN XL) 300 mg 24 hr tablet Take 1 tablet (300 mg total) by mouth every morning 90 tablet 1 5 11/27/19 25 Active dextroamphetami ne-amphetamine (ADDERALL) 20 mg tablet Take 1 tablet (20 mg total) by mouth 3 (three) times a day 90 tablet 5 06/30/19 25 Active buPROPion XL (WELLBUTRIN XL) 300 mg 24 hr tablet Take 1 tablet (300 mg total) by mouth every morning 90 tablet 4 05/30/19 25 Discontinu ed(Reorder ) topiramate (TOPAMAX) 25 mg tablet Take 2 tablets (50 mg total) by mouth 2 (two) times a day 360 tablet 4 05/30/19 25 Discontinu ed(Reorder ) dextroamphetami ne-amphetamine (ADDERALL) 20 mg tablet Take 1 tablet (20 mg total) by mouth 3 (three) times a day 90 tablet 4 05/30/19 25 Discontinu ed(Reorder ) dextroamphetami ne-amphetamine (ADDERALL) 20 mg tablet Take 1 tablet (20 mg total) by mouth 3 (three) times a day 90 tablet 5 05/31/19 25 Discontinu ed(Reorder ) Active Problems Problem Noted Date Diagnosed Date Encounter for weight loss counseling 05/30/2024 Assessment & Plan (05/30/2024 2:05 PM MENDING CARRIER): Reviewed importance of adequate protein intake. Reviewed recommendation/goal of >/= 150 minutes/week moderate intensity aerobic exercise. Discussed okay to not track food/calories but that if they start to struggle or are not losing weight, this is a useful tool to help refocus. Discussed limiting calorie intake with restaurant options including planning meals prior to ordering, eating only half the meal, and substituting certain items. Obesity, Class I, BMI 30-34.9 05/30/2024 Assessment & Plan (05/30/2024 3:51 PM MENDING CARRIER): Continue low carb, low glycemic diet. Vikki is currently on Adderall, topamax and wellbutrin Continue medication at current dose. May consider increasing topamax in the future if no continued improvement. Metformin was previously not tolerated: abd pain and nausea increase physical activity, water, and protein (eat protein first, veggies, fruits, starchy veggies, legumes, grains) Increase to 60-80+ fl oz daily Increase protein intake to 70-90g daily Try to increase intentional physical activity and add in some strength training (weights, resistance bands, yoga, pilates) Reviewed importance of adequate protein intake. Reviewed recommendation/goal of >/= 150 minutes/week moderate intensity aerobic exercise. BMI 31.0-31.9,adult 05/30/2024 Assessment & Plan (05/30/2024 3:31 PM MENDING CARRIER): Patient's initial BMI was 31.3; this has improved to 27.55 through medical management Encounter for exercise counseling 05/30/2024 Assessment & Plan (05/30/2024 2:05 PM MENDING CARRIER): I counseled the patient on exercise: Recommend 36 min. cardio daily. Based on availiable data on the secondary prevention of coronary heart disease, stroke and prediabetes, physical activity is potentially as active as many drug interventions.Sherry Castelan: BMJ 2013 347:f5577;02/2013; Diabetes Care, Volume 35, Apr 2012. Reviewed recommendation/goal of >/= 150 minutes/week moderate intensity aerobic exercise. Discussed need for weightbearing exercise in order to promote muscle gain and burning fat. Primary localized osteoarthritis of right knee 0 01/07/2024 Abnormal metabolism 12/07/2023 Assessment & Plan (05/30/2024 2:05 PM MENDING CARRIER): Obesity is one of the leading risk factor for mortality. Metabolically healthy obese individuals had 49% increased risk of coronary artery disease, 7% increased risk of cerebrovascular disease and 96% increased risk of heart failure. In other words, even individuals who are normal weight can have metabolic abnormalities and similar risk for cardiac vascular disease events. Thus, the complications that may result from metabolic syndrome and frequently serious and chronic. They include atherosclerosis, diabetes, myocardial infarction, renal disease, cardiovascular events such as stroke, nonalcoholic fatty liver disease, peripheral artery disease, and cardiovascular diseases. His diabetes develops; there is an increased risk of retinopathy, neuropathy, renal disease and amputation of limbs. Therefore, treating obesity, obesity related diseases is exceedingly crucial. Improving the hypertrophic adipocytes function and decrease insulin resistance is the main goal of the treatment. Furthermore, an emerging concept that the anti-obesity agents must not only reduce the hypertrophic adipocytes but must also correct the fat dysfunction, adiposopathy. Weight loss is associated with increases in mean suppression of glucose production from baseline, is associated with increase insulin stimulated in glucose disposal from fat-free mass and weight loss increased beta cell function. In other words, weight loss change in hepatic insulin sensitivity and muscle insulin sensitivity, beta cell function and a 24-hour plasma glucose and insulin profiles. Our goal is and decreasing the weight between 16 and 20% which will significantly decrease the risk of morbidity and mortality. Abnormal weight gain 12/07/2023 ADD (attention deficit disorder) 12/07/2023 Anxiety 12/07/2023 BMI 24.0-24.9, adult 12/07/2023 CRP elevated 12/07/2023 Depression 12/07/2023 Dietary counseling and surveillance 12/07/2023 Disorder of metabolism 12/07/2023 Fatigue 12/07/2023 Fatty liver 12/07/2023 High serum low density lipoprotein (LDL) cholest yuni 12/07/2023 Hyperglycemia 12/07/2023 Hyperlipidemia 12/07/2023 Joint pain 12/07/2023 Lumbar back pain 12/07/2023 Overweight 12/07/2023 Sinusitis 12/07/2023 Vitamin D deficiency 12/07/2023 Encounters Date Type Department Care Team Description 05/30/2024 3:30 PM MENDING CARRIER Office Visit [facility] Diabetes [facility] Nutrition Services [address] [place] [address] [address] [place] [phone] Pina Aly PA Encounter for weight loss counseling (Primary Dx); Abnormal metabolism; Obesity, Class I, BMI 30-34.9; BMI 31.0-31.9,adult; Encounter for exercise counseling 05/30/2024 Orders Only [facility] [address] [place] [address] Medical Office Building [address], [address] [place] [phone] Ronda Brown, BETO 04/04/2024 Orders Only [facility] Orthopaedic Surgery [address] [facility] Medical Office Building [address] [address] Nilson Peres MD Primary localized osteoarthritis of right knee (Primary Dx) 03/27/2024 1:00 PM MENDING CARRIER Telemedicine [facility] Diabetes [facility] Nutrition Services [address] [place] [address] Medical Office Building [address], [address] [place] [address] Kiarra Yancey PA Obesity, Class I, BMI 30.0-34.9 (see actual BMI) (Primary Dx); Metabolic syndrome; Body mass index (BMI) of 31.0 to 31.9 in adult; Attention deficit hyperactivity disorder (ADHD), combined type; Medication management; Encounter for weight management; Dietary counseling and surveillance from Last 3 Months Family History Medical History Relation Name Comments Diabetes Father Relation Name Status Comments Father Social History Tobacco Use Types Packs/Day Years Used Date Smoking Tobacco: Never Passive Smoke Exposure: Never Smokeless Tobacco: Never Tobacco Cessation:Counseling Given: Not Answered AUDIT-C Answer Date Recorded Q1: How often [...] on file Legal Sex Female 4:08 AM MENDING CARRIER Gender Identity Not on file Sexual Orientation Not on file Obstetrics History Last Filed Vital Signs Vital Sign Reading Time Taken Comments Blood Pressure 118/72 05/30/2024 3:47 PM MENDING CARRIER Pulse 87 05/30/2024 3:23 PM MENDING CARRIER Temperature 36.4 ??C (97.6 ??F) 12/16/2023 3:08 PM CD T Respiratory Rate 16 12/16/2023 3:08 PM CDT Oxygen Saturation 99% 05/30/2024 3:23 PM MENDING CARRIER Inhaled Oxygen Concentration - - Weight 77.4 kg (170 lb 9.6 oz) 05/30/2024 3:23 P M MENDING CARRIER Height 167.6 cm (5' 5.98 ) 05/30/2024 3:23 PM CS T Body Mass Index 27.55 05/30/2024 3:23 PM MENDING CARRIER Plan of Treatment Health Maintenance Due Date Last Done Comments Breast Cancer Screening-Mammogram 1975 Cervical Cancer Screening 1975 Colon Cancer Screening-Colonoscopy 1975 Depression Screening 1975 Hepatitis C Screening 1974 DTaP/Tdap/Td Vaccine (1 - Tdap) 1985 Hepatitis B Screening 1992 Regular Well Visit/Exam 18-64 1992 Covid-19 Vaccine (3 - 2023-2 5 season) 2024 05/08/2021, 07/19/2020 Influenza Vaccine (#1) 2024 Pneumococcal vaccine <65 Aged Out No longer eligible based on patient's age to complete this topic Insurance [facility] H[facility]/PPO Address: [address] CHOICE PLUS [facility]/PPO Address: [place] [address] [place] [phone] [facility] CHOICE PLUS [facility] H[facility]/PPO Address: [address] [place] [address] [employer] [facility] H[facility]/PPO Address: [facility] [id number] [place], [place] [id number] Care Teams Services Tech Relationship Specialty Start Date End Date Isabel Mills MD [address] [facility] [address] [place] [address] PCP - General Family Medicine 07/15/21
--- OUTSIDE RECORDS SUMMARY | 2024-06-08 03:32 | XMS_ITS | Referral Summary ---
Author Organization [facility] Address [address] [place] [address] Care Team Providers Care Lift Driver Name Role Phone Isabel Mills MD Primary Care Provider Encounters Date Type Department Care Team Description 05/30/2024 Orders Only [facility] Diabetes [facility] Nutrition Services [address] [place] [address] Medical Office Building 4, [address] [place] [phone] Ronda Brown, BETO 05/30/2024 3:30 PM CHIEF CATALYST OPERATOR Office Visit [facility] Nutrition Services [address] [place] [address] [place] [address] Pina Aly PA Encounter for weight loss counseling (Primary Dx); Abnormal metabolism; Obesity, Class I, BMI 30-34.9; BMI 31.0-31.9,adult; Encounter for exercise counseling 04/04/2024 Orders Only [facility] Orthopaedic Surgery [address] [facility] Medical Office Building [address] [address] Nilson Peres MD Primary localized osteoarthritis of right knee (Primary Dx) 03/27/2024 1:00 PM CHIEF CATALYST OPERATOR Telemedicine [facility] Diabetes [facility] Nutrition Services [address] [place] [address] Medical Office Building 4, [address] [place] [address] Kiarra Yancey PA Obesity, Class I, BMI 30.0-34.9 (see actual BMI) (Primary Dx); Metabolic syndrome; Body mass index (BMI) of 31.0 to 31.9 in adult; Attention deficit hyperactivity disorder (ADHD), combined type; Medication management; Encounter for weight management; Dietary counseling and surveillance from Last 3 Months Allergies No known active allergies Medications eletriptan [...] 05/30/2024 Assessment & Plan (05/30/2024 2:05 PM CHIEF CATALYST OPERATOR): Reviewed importance of adequate protein intake. Reviewed [...] 05/30/2024 Assessment & Plan (05/30/2024 3:51 PM CHIEF CATALYST OPERATOR): Continue low carb, low glycemic diet. Vikki [...] 05/30/2024 Assessment & Plan (05/30/2024 3:31 PM CHIEF CATALYST OPERATOR): Patient's initial BMI was 31.3; this has improved to 27.55 through medical management Encounter for exercise counseling 05/30/2024 Assessment & Plan (05/30/2024 2:05 PM CHIEF CATALYST OPERATOR): I counseled the patient on exercise: Recommend [...] 12/07/2023 Assessment & Plan (05/30/2024 2:05 PM CHIEF CATALYST OPERATOR): Obesity is one of the leading risk [...] 12/07/2023 Sinusitis 12/07/2023 Vitamin D deficiency 12/07/2023 Social History Tobacco Use Types Packs/Day Years [...] on file Legal Sex Female 4:08 AM CHIEF CATALYST OPERATOR Gender Identity Not on file Sexual Orientation Not on file Last Filed Vital Signs Vital Sign Reading Time Taken Comments Blood Pressure 118/72 05/30/2024 3:47 PM CHIEF CATALYST OPERATOR Pulse 87 05/30/2024 3:23 PM CHIEF CATALYST OPERATOR Temperature 36.4 ??C (97.6 ??F) 12/16/2023 3:08 PM CD T Respiratory Rate 16 12/16/2023 3:08 PM CDT Oxygen Saturation 99% 05/30/2024 3:23 PM CHIEF CATALYST OPERATOR Inhaled Oxygen Concentration - - Weight 77.4 kg (170 lb 9.6 oz) 05/30/2024 3:23 P M CHIEF CATALYST OPERATOR Height 167.6 cm (5' 5.98 ) 05/30/2024 3:23 PM CS T Body Mass Index 27.55 05/30/2024 3:23 PM CHIEF CATALYST OPERATOR Plan of Treatment Not on file Insurance [facility] [place] [address] [facility] CHOICE PLUS Member Subscriber Plan / Payer (Ef fective 2023-Present) Name:Vikki Owen Relation to Subscriber:Self Name:Vikki Owen Payer ID:[id number] (NAIC) Type:[facility] HMO/PPO Address: [address] CHOICE PLUS Care Teams Lift Driver Relationship Specialty Start Date End Date Isabel Mills MD [address] [facility] [address] [place] [address] PCP - General Family Medicine 07/15/21
== END 2024-06-01 13:02 | disposition home or self-care (01) ==
LOC: ANHIMG 13:02
PROVIDERS: PCP Family Medicine; Visit Provider Internal Medicine
DX: E04.2 Nontoxic multinodular goiter (principal)
CPT/HCPCS: 76536